=== PATIENT | female | born 1930 | race Caucasian/White ===

== ENCOUNTER 2017-02-28 20:27 | Inpatient (IN) | payer OTHER ==
[~2017-02-28] VITALS: Wt 54.1 kg
--- NOTE | ~2017-02-28 | EKG ---
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1930 Requested By: Sam Sarmiento Order Number: [id number] MD: Myles Sweeney Measurements Intervals [place] Rate: 118 P: [place]: QRS: 41 QRSD: 85 T: 248 QT: 316 QTc: 443 Interpretive Statements Atrial fibrillation Probable LVH with secondary repol abnrm Compared to ECG 03/05/2016 20:24:16 Ventricular premature complex(es) no longer present Electronically Signed On 03-01-2017 10:19:06 CDT by Myles Sweeney [email or web address] <ELECTRONICALLY SIGNED> By: Myles Sweeney MD, [facility] 03/01/17 1019 52 52 Myles Sweeney MD, [facility] /EPI
--- NOTE | ~2017-02-28 | HC ---
[facility] [place] [address] CONSULTATION Name: RACHNA KINNEY Room #: 211-P [facility] IN M.R.#: [id number] Admission: 02/28/17 Attend Phys: Cornelio Dimas MD Discharge: 03/01/17 Date of : 30 Report #: [id number] THIS REPORT FOR: //name// CC: Alvin Hawkins DATE OF SERVICE: 03/01/2017 PRIMARY BACK HANGER: Von Hawkins M.D., F.A.C.C. CHIEF COMPLAINT: Palpitations. HISTORY OF PRESENT ILLNESS: The patient is an 86-year-old female with a known history of paroxysmal atrial fibrillation, presented to [facility] with onset of palpitations and some mild lightheadedness and her blood pressure decreased to less than 100 systolic. She presented in atrial fibrillation, heart rates in the 120s. Clinically, she is asymptomatic for chest pain or pressure. She is not short of breath. She denies cough. She was placed on IV Cardizem and now she is asymptomatic. She had been on metoprolol, which she was supposed to take on a p.r.n. basis, but has not been able to. She has been having some lower blood pressures. She is also on other antihypertensive therapies. PAST MEDICAL HISTORY: Significant paroxysmal atrial fibrillation. She actually has a LINQ implanted device, which was used to make her diagnosis. She is fully anticoagulated. She has a history of normal LV function based on recent echocardiogram. She has no history of coronary artery disease. MEDICATIONS: She has been on the following medications: Apixaban 2.5 mg p.o. b.i.d., Nasonex, hydrochlorothiazide 12.5 mg daily, metoprolol 25 mg daily, amlodipine 10 mg daily, Protonix daily, fexofenadine and lisinopril 5 mg daily. SOCIAL HISTORY: She is a nonsmoker. REVIEW OF SYSTEMS: GASTROINTESTINAL: No abdominal pain, nausea or bleeding. GENITOURINARY: No bleeding. CARDIOVASCULAR: No chest pain. Positive mild dizziness. Positive palpitations. No orthopnea. No PND. SKIN: No edema. MUSCULOSKELETAL: Denies any joint pain or swelling. [address] [address] CONSULTATION Name: RACHNA KINNEY Room #: [address] [place] [address].#: [id number] Admission: 02/28/17 Attend Phys: Cornelio Dimas MD Discharge: 03/01/17 Date of : 30 Report #: [id number] MUSCULOSKELETAL: No falls. HEMATOLOGIC: No anemia or bleeding disorders. NEUROLOGICAL: Denies slurred speech or strokes. PHYSICAL EXAMINATION: VITAL SIGNS: Blood pressure is 109/62; pulse is 77, in atrial fibrillation heart rate 95, room air. GENERAL: Thin elderly female. She is alert and oriented, no apparent distress. HEENT: Eyes are intact. No facial asymmetry. NECK: Supple. No jugular venous distention. CARDIOVASCULAR: Regular. There is no murmur. LUNGS: Clear to auscultation. ABDOMEN: Soft and nontender. NEUROLOGICAL: There are no focal deficits. RADIOLOGICAL DATA: Chest x-ray: No acute process. LABORATORY DATA: Hemoglobin 14.7; white blood cell count is 9.8 and platelet counts are 298,000. Sodium is 140, potassium is 3.4, chloride is 104, CO2 is 27, BUN is 17 and creatinine 0.9. IMPRESSION: 1. Atrial fibrillation. She has elevated heart rate responses. This is paroxysmal, historically. At this point in time, I would like to schedule her metoprolol dosing and discontinue her dihydropyridine calcium channel idania. We will continue with full anticoagulation. 2. Hypertension as noted above. We will discontinue her Norvasc but we may also discontinue her angiotensin-converting enzyme inhibitor also. If she turns around lower blood pressures, we can do this as an outpatient. 3. Anticoagulation, adequate. As noted above, she has tolerated her apixaban fairly well and has reported no falls or bleeding. She remains a high stroke risk based on our elevated CHADS-VASc score. 4. Followup. She has already a followup with me in March. We will keep this appointment. <ELECTRONICALLY SIGNED> By: Von Hawkins MD, FACC 03/05/17 0846 1317 58 Von Hawkins MD, FACC /nt
--- NOTE | ~2017-02-28 | 2DMMODE ---
[facility] [address] [place] [address] 2 D/M-MODE ECHOCARDIOGRAM Name: RACHNA KINNEY Room #: 211-P [facility] IN M.R.#: [id number] Admission: 02/28/17 Attend Phys: Cornelio Dimas, Discharge: Date of : 30 Date of Service: 03/01/17 1327 Report #: [id number] THIS REPORT FOR: //name// APPROVED REPORT Study performed: 03/01/2017 10:19:22 EXAM: Comprehensive 2D, Doppler, and color-flow Echocardiogram Patient Location: Bedside Room #: 211 Status: on-call Other Information Study Quality: Adequate Risk Factors: Cardiac Risk Factors: HTN, SOB Indications Chest Pain Elevated BNP 2D Dimensions LVOT Diam: 18.00 (18-24mm) Volumes Left Atrial Volume (Systole) Single Plane 4CH: 46.76 mL Single Plane 2CH: 36.29 mL LA ESV Index: 34.00 mL/m2 Aortic Valve AoV Peak Mitch.: 1.39 m/s AO Peak Gr.: 9.08 mmHg AI Vmax: 3.56 m/s AI Ashley: 1.08 m/s2 AI PHT: 1014.41 ms Pulmonary Valve PV Peak Mitch.: 1.15 m/s PV Peak Gr.: 5.27 mmHg Tricuspid Valve TR Peak Mitch.: 2.67 m/s RAP Estimate: 5.00 mmHg TR Peak Gr.: 28.51 mmHg PA Pressure: 34.00 mmHg TV Max P.00 mmHg [facility] [address] [place] [address] 2 D/M-MODE ECHOCARDIOGRAM Name: RACHNA KINNEY Room #: 211-P [facility] IN [place].#: [id number] Admission: 02/28/17 Attend Phys: Cornelio Dimas, Discharge: Date of : 30 Date of Service: 03/01/17 1327 Report #: [id number] Left Ventricle The left ventricle is normal size. There is normal LV segmental wall motion. There is normal left ventricular wall thickness. Left ventricular systolic function is normal. The left ventricular ejection fraction is within the normal range. LVEF is 60-65%. The left ventricular diastolic function is normal. Right Ventricle The right ventricle is normal size. The right ventricular systolic function is normal. Atria The left atrium size is normal. The right atrium size is normal. Aortic Valve The Aortic valve is sclerotic. Mild aortic regurgitation. There is no aortic valvular stenosis. Mitral Valve Moderate mitral annular calcification. Trace mitral regurgitation. No evidence of mitral valve stenosis. Tricuspid Valve The tricuspid valve is normal in structure. Trace to mild tricuspid regurgitation. Pulmonic Valve The pulmonary valve is normal in structure. There is no pulmonic valvular regurgitation. Great Vessels The aortic root is normal in size. IVC is normal in size and collapses with >50% inspiration Pericardium There is no pericardial effusion. <Conclusion> Left ventricular systolic function is normal. There is normal LV segmental wall motion. LVEF is 60-65%. The Aortic valve is sclerotic. Mild aortic regurgitation, no stenosis. Moderate mitral annular calcification. Trace mitral [facility] [address] [place] [address] 2 D/M-MODE ECHOCARDIOGRAM Name: RACHNA KINNEY Room #: 211-P [facility] IN [facility].#: [id number] Admission: 02/28/17 Attend Phys: Cornelio Dimas, Discharge: Date of : 30 Date of Service: 03/01/171326 Report #: [id number] regurgitation. Pulmonary artery pressure of 35mmHg There is no pericardial effusion. <ELECTRONICALLY SIGNED> By: Myles Sweeney MD, [facility] 03/01/171326 26 26 Myles Sweeney MD, [facility] /INF
[~2017-02-28 20:27] MED LIST: ALLEGRA ALLERG180 MG PO; AMLODIPINE BESYL5 MG PO; ARTHRITIS PAIN650 M3 PO; ASPIR-LOW81 MG PO; BONIVA150 MG PO; CALCIUM500 M1 PO; CENTRUM SILVER1 EAC4 PO; COLESTIPOL HCL1 G1 PO; COMBIGAN EYE DR10 ML OP; DIAZEPAM 5 MG5 MG PO; DILTIAZEM ER60 M1 PO; ELIQUIS2.5 MG PO; FISH OIL 1,0001 EAC8 PO; GLUCOSAMINE HC500 MG PO; HYDROCHLOROTHIA25 M2 PO; HYDROCODONE-AP1 EAC6 PO; HYDROCODONE-APA1 TA1 PO; LISINOPRIL10 MG PO; LOPRESSOR 12.12.5 MG PO; LOPRESSOR25 PO; MAALOX MAXIMUM355 ML PO; NASONEX17 GM NASAL; NASONEX17 GM NS; PANTOPRAZOLE SO40 MG PO; SIMBRINZA 1%-0.28 ML OP; TRAMADOL 50 MG50 MG PO; TRAVATAN Z5 ML OP; VITAMIN D-40400 UNIT PO; [UNRECOGNIZED DRUG - OTHER] PO
[2017-02-28 20:46] VITALS: BP 138/72
[2017-02-28 21:12] LABS: ABSOLUTE NEUTROPHILS 6.6 thou/uL (1.4-8.2); BASOPHILS 0.6 % (0.0-2.0); EOSINOPHILS 1.1 % (0.0-3.0); HEMATOCRIT 44.4 % (37.0-47.0); HEMOGLOBIN 14.7 gm/dL (12.0-15.0); LYMPHOCYTES 20.7 % (24.0-44.0); MCH 31.2 pg (26.0-34.0); MCHC 33.2 g/dL (28.0-37.0); MCV 94.2 fL (80.0-100.0); MONOCYTES 10.5 % (1.0-8.0); PLATELET COUNT 298 thou/uL (150-400); POLYS 67.1 % (36.0-66.0); RBC 4.72 mil/uL (4.20-5.00); RDW 14.5 % (10.5-14.5); WBC 9.8 thou/uL (4.0-11.0)
[2017-02-28 21:14] LABS: MANUAL DIFF NO
[2017-02-28 22:18] LABS: ANION GAP 8 mmol/L (7-16); BUN 19 mg/dL (7-18); CALCIUM 9.6 mg/dL (8.5-10.1); CHLORIDE 102 mmol/L (98-107); CO2 28 mmol/L (21-32); GLUCOSE 130 mg/dL (74-106); POTASSIUM 3.4 mmol/L (3.5-5.1); SODIUM 138 mmol/L (136-145)
[2017-02-28 22:31] LABS: NT-PRO BRAIN NAT PEPTIDE 1854 pg/mL (<300); TROPONIN-I < 0.04 ng/mL (<0.04-0.07)
[2017-02-28 23:47] VITALS: BP 176/71
[2017-03-01] VITALS: BP 121/59
[2017-03-01 04:01] VITALS: BP 118/57
[2017-03-01 04:13] LABS: CREATININE 0.9 mg/dL (0.6-1.0); MAGNESIUM 1.6 mg/dL (1.8-2.4); POTASSIUM 3.4 mmol/L (3.5-5.1)
[2017-03-01 07:44] VITALS: BP 138/68
[2017-03-01 11:02] VITALS: BP 109/62
[2017-03-01] MEDS ORDERED: LEVOTHYROXINE0.05 MG PO (14:46)
[2017-03-01 15:41] VITALS: BP 109/62
[2017-03-01 16:01] VITALS: BP 124/62
== END 2017-03-01 16:37 | disposition home or self-care (01) | DRG 310 ==
LOC: ER 20:27 → EROBS 22:53 → 2N 23:49
PROVIDERS: Emergency Medicine; Nurse Practitioner Acute Care
DX: I48.0 Paroxysmal atrial fibrillation (principal); I10 Essential (primary) hypertension; E03.9 Hypothyroidism, unspecified; K21.9 Gastro-esophageal reflux disease without esophagitis; E87.6 Hypokalemia; M19.90 Unspecified osteoarthritis, unspecified site; E78.5 Hyperlipidemia, unspecified; Z96.653 Presence of artificial knee joint, bilateral; H40.9 Unspecified glaucoma; Z98.42 Cataract extraction status, left eye; Z98.41 Cataract extraction status, right eye; Z91.018 Allergy to other foods; Z79.01 Long term (current) use of anticoagulants; Z79.899 Other long term (current) drug therapy; Z82.49 Family history of ischemic heart disease and other diseases of the circulatory system; Z90.49 Acquired absence of other specified parts of digestive tract
CPT/HCPCS: 10081

== ENCOUNTER 2017-05-06 06:30 | Observation (INO) | payer OTHER ==
[~2017-05-06] VITALS: Ht 152.4 cm; Wt 52.8 kg
--- NOTE | ~2017-05-06 | CATHLAB ---
[facility] [address] [place] [address] INVASIVE PROCEDURE REPORT Name: RACHNA KINNEY Room #: 213-P DIS IN M.R.#: [id number] Admission: 05/06/17 Attend Phys: Alvin Platt MD Discharge: 05/07/17 Date of : 30 Date of Service: 05/07/17 1655 Report #: [id number] THIS REPORT FOR: //name// APPROVED REPORT Patient Status: Observation Room #: Exam: Insertion of Single Chamber Permanent Pacemaker Indications: Sick Sinus Syndrome/Tachy Phil Syndrome The patient is a 86 year-old female with a history of sss. Implanted Devices: biotronic single lead MRI compatible pacemaker Procedure The patient underwent informed consent. We discussed the details of the procedure including the risks, which include, but not limited to bleeding, infection, vascular damage, cardiac perforation, and pneumothorax. She understood these risks and was willing to proceed. As such, she was brought to the EP/Cardiac Catheterization laboratory in a fasting and sedated state and prepped and draped in a sterile fashion, received IV antibiotics prior to initiation of the procedure and a venogram was performed showing patency of the left axillary vein. The patient underwent conscious sedation, with no related complications. The patient was brought to the EP/Cardiac Catheterization laboratory and the left chest and shoulder were prepped and draped in a sterile manner. During this case, Fluoroscopy and low osmolar contrast were used for imaging. The left subclavian region was infiltrated with 2% Lidocaine subcutaneous anesthesia. A transverse incision was made in the left upper chest cavity. The subcutaneous pocket was formed via blunt dissection. Percutaneous venous access was achieved and an introducer sheath was inserted into the left Subclavian vein. Sheaths were positions using the modified Seldinger technique Through the introducer sheaths the ventricular lead wire was positioned in the right atrial appendage and right ventricular apex respectively. Utilizing fluoroscopic guidance, the ventricular lead wire was advanced over the wires and positioned in the right atria and right ventricle respectively. Capturing and sensing thresholds were verified. [facility] [address] [place] [address] INVASIVE PROCEDURE REPORT Name: RACHNA KINNEY Room #: 213-P [facility] IN ..#: [id number] Admission: 05/06/17 Attend Phys: Alvin Platt MD Discharge: 05/07/17 Date of : 30 Date of Service: 05/07/17 1655 Report #: [id number] The ventricular lead was interrogated and sutured in place Electrode Parameters R Wave: 12 v Ventricular Threshold: 0.6v at 0.4 ms Ventricular Resistance: 760 ohm Single Chamber The atrial and ventricular leads were then secured using 0 silk sutures. The subcutaneous pocket was irrigated with ancef antibiotic solution.The ventricular lead was attached to the appropriate receptacle on the pulse generator and set screws firmly tightened to insure adequate contact and stability. The lead and pulse generator were placed into the subcutaneous pocket. Sharp and sponge counts were confirmed to be correct. At this time the pocket was closed subcutaneously with a 0 Vicryl and the skin was closed with a 4.0 Vicryl. The operative site was dressed in sterile fashion with skin affix and the patient was transferred to the floor in stable condition. Complications The patient tolerated the procedure well and there were no complications associated with the procedure. Findings Specimens Removed: N/A Estimated Blood Loss: 10 cc Conclusion successful placement of a single lead ventricular pacemaker <ELECTRONICALLY SIGNED> By: Alvin Platt MD, FACC 05/07/175 54 54 Alvin Platt MD, FACC /INF
--- NOTE | ~2017-05-06 | D ---
[facility] [place] [address] DISCHARGE SUMMARY Name: RACHNA KINNEY Room #: 213-P FRANCIS Gonzáles#: [id number] Admission: 05/06/17 Attend Phys: Jesus Manuel Platt MD, FA Discharge: 05/07/17 Date of : 30 Report #: [id number] THIS REPORT FOR: //name// CC: JESUS MANUEL Hawkins DATE OF SERVICE: 05/07/2017 DISCHARGE DIAGNOSES: 1. Permanent atrial fibrillation. 2. Sick sinus syndrome. 3. Hypertension. CONSULTANTS: None. PROCEDURES: Implantation of a permanent single lead pacemaker via the left subclavian vein. HISTORY OF PRESENT ILLNESS: The patient is an 86-year-old white female who was brought to the outpatient department to undergo implantation of a permanent pacemaker. The patient has a long history of atrial fibrillation. Previous stress test showed no evidence of coronary artery disease. She previously had a link monitored and serviced at [facility] by Dr. Poe. Recently, she has been followed by my partner, Dr. Hawkins. She recently complained of being lightheaded, but no chest pain or shortness of breath. She has been chronically anticoagulated, but had no bleeding problems. Recent interrogation of her link device showed rapid rates of atrial fibrillation. She also had slow rates with pauses up to [address] Hawkins referred her to my clinic for possible pacemaker insertion. I recommended she undergo implantation of a pacemaker. PAST MEDICAL HISTORY: Otherwise significant for appendectomy, cholecystectomy, tonsillectomy, knee arthroplasty. She has a history of hypertension, but no history of diabetes. MEDICATIONS: Consist of Eliquis 2.5 mg twice a day, which was stopped 2 days prior to admission; Lore and HCTZ 12.5 mg a day, Protonix, tramadol as needed, amlodipine 5 mg a day, lisinopril 5 mg a day and she recently was told to stop her metoprolol because of the pauses. ALLERGIES: SHE HAD A PREVIOUS INTOLERANCE TO ATORVASTATIN. PHYSICAL EXAMINATION: GENERAL: Revealed an elderly female. [facility] [address] [place] [address] DISCHARGE SUMMARY Name: RACHNA KINNEY Room #: 213-P [facility] Neal Gonzáles#: [id number] Admission: 05/06/17 Attend Phys: Jesus Manuel Platt MD, FA Discharge: 05/07/17 Date of : 30 Report #: [id number] VITAL SIGNS: Blood pressure 120/70, pulse is 70 and irregular. HEENT: Mucous membranes are moist. CHEST: Clear to auscultation. CARDIAC: Irregular rhythm. ABDOMEN: Soft. EXTREMITIES: Had no edema. SKIN: Warm and dry. HOSPITAL COURSE: The patient was brought to the outpatient department. She was given Ancef and taken to the EP lab. I then implanted a permanent single lead MRI compatible pacemaker lead and generator in the left subclavicular area. She tolerated the procedure well. Skin Affix was applied over the incision. Followup chest x-ray showed no pneumothorax. On the monitor, she remained in atrial fibrillation with occasional paced beat. The following day, the pacemaker was interrogated and found to be functioning normally. She was discharged on her home medications that included Eliquis 2.5 mg, which she was to resume on 05/08/2017 if there is no bleeding, hydrochlorothiazide 12.5 mg a day for hypertension, Protonix 40 mg a day, tramadol as needed, lisinopril 5 mg a day and metoprolol was resumed to 25 mg twice a day. Recently, her blood pressure is low. After pacing if her blood pressure is noted to be elevated, I would recommend resuming her amlodipine. She was discharged to return to the care of Dr. Henderson for routine medical care. I plan on seeing her in the Cardiology Clinic in [place] on 06/02/2017. She was not to shower for 48 hours. She was not to lift the left arm above her head for the next week. I recommend she not drive for 5 days. She was to contact my office if she had evidence of bleeding or infection. She is felt to have a good prognosis from a cardiac standpoint. My impression is that she had permanent atrial fibrillation and was having pauses secondary to sick sinus syndrome despite stopping the beta-idania. She will need the beta-idania, however, to prevent rapid rates of atrial fibrillation. Because of her CHADS score, I did recommend resuming Eliquis. <ELECTRONICALLY SIGNED> By: Jesus Manuel Platt MD, [facility] 05/08/17 1954 1723 180 Jesus Manuel Platt MD, FAC /nt
--- NOTE | ~2017-05-06 | EKG ---
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1930 Requested By: Alvin Platt Order Number: [id number] MD: Myles Sweeney Measurements Intervals [place] Rate: 93 P: [place]: QRS: 51 QRSD: 86 T: 233 QT: 372 QTc: 463 Interpretive Statements Afib/flut and V-paced complexes No further rhythm analysis attempted due to paced rhythm Borderline low voltage, extremity leads Borderline repolarization abnormality Compared to ECG 02/28/2017 20:53:44 Intermittent ventricular pacing now present Electronically Signed On 05-07-2017 8:30:49 CDT by Myles Sweeney [email or web address] <ELECTRONICALLY SIGNED> By: Myles Sweeney MD, [facility] 05/07/17 0830 Myles Sweeney MD, [facility] /EPI
[~2017-05-06 06:30] MED LIST changes: +LEVOTHYROXINE0.05 MG PO
[2017-05-06 07:04] VITALS: BP 134/69
[2017-05-06 08:10] LABS: ABSOLUTE NEUTROPHILS 6.4 thou/uL (1.4-8.2); BASOPHILS 0.4 % (0.0-2.0); EOSINOPHILS 2.5 % (0.0-3.0); HEMATOCRIT 39.4 % (37.0-47.0); HEMOGLOBIN 13.3 gm/dL (12.0-15.0); LYMPHOCYTES 19.9 % (24.0-44.0); MCH 31.3 pg (26.0-34.0); MCHC 33.8 g/dL (28.0-37.0); MCV 92.7 fL (80.0-100.0); MONOCYTES 11.7 % (1.0-8.0); PLATELET COUNT 247 thou/uL (150-400); POLYS 65.5 % (36.0-66.0); RBC 4.24 mil/uL (4.20-5.00); RDW 13.9 % (10.5-14.5); WBC 9.8 thou/uL (4.0-11.0)
[2017-05-06 08:12] LABS: MANUAL DIFF NO
[2017-05-06 08:16] LABS: CALCIUM 9.7 mg/dL (8.5-10.1); CREATININE 1.4 mg/dL (0.6-1.0); POTASSIUM 3.8 mmol/L (3.5-5.1)
[2017-05-06 08:23] LABS: ALBUMIN 3.9 g/dL (3.4-5.0); TOTAL BILIRUBIN 1.1 mg/dL (<0.1-1.0); TOTAL PROTEIN 7.4 g/dL (6.4-8.2)
[2017-05-06 11:02] VITALS: BP 120/59
[2017-05-06 16:24] VITALS: BP 129/59
[2017-05-06 20:11] VITALS: BP 162/72
[2017-05-06 23:50] VITALS: BP 163/71
[2017-05-07 03:45] VITALS: BP 138/80
[2017-05-07 07:43] VITALS: BP 134/75
[2017-05-07 09:54] VITALS: BP 134/75
[2017-05-07 11:45] VITALS: BP 125/75
[2017-05-07 16:24] VITALS: BP 134/75
== END 2017-05-07 16:25 | disposition home or self-care (01) ==
LOC: CATH 06:30 → 2N 10:18 → CATH 12:26 → 2N 05-07 16:25
PROVIDERS: Internal Medicine Cardiovascular Disease
DX: I48.91 Unspecified atrial fibrillation (principal); I49.5 Sick sinus syndrome; E78.00 Pure hypercholesterolemia, unspecified; I10 Essential (primary) hypertension; R07.9 Chest pain, unspecified